=== PATIENT | female | born 1955 | race Caucasian/White ===

== ENCOUNTER 2020-12-04 17:01 | Emergency (ER) | payer OTHER ==
[~2020-12-04] VITALS: Ht 177.8 cm; Wt 102.1 kg
--- NOTE | 2020-12-04 17:25 | NUR ---
65 y/f with no significant past medical hx reported presented with a c/o of upper quadrant abdominal pain 6/10 x 5 hrs. she describe the pain as burning associated with nausea but no vomiting. She denies eating any provocating food or drinks. She denies constipation, diarrhea, chest pain, fever/chills. pt place on playground monitor, all safety precaution in place,
[2020-12-04] MEDS ORDERED: MAG HYDROX/AL HYDROX/SIMETH 30 ML UDC ONE (17:57)
[2020-12-04] MEDS ORDERED: ONDANSETRON HCL/PF 4 MG/2 ML VIAL ONE (17:57)
[2020-12-04] MEDS ORDERED: LIDOCAINE 2% JEL UROJET 10 ML MM ONE (17:57)
[2020-12-04] MEDS ORDERED: MORPHINE SULFATE INJ 2 MG/ML DISP.SYRIN ONE (17:58)
[2020-12-04] MEDS ORDERED: MAG HYDROX/AL HYDROX/SIMETH 30 ML UDC PO ONE (18:00)
[2020-12-04] MEDS ORDERED: ONDANSETRON HCL/PF 4 MG/2 ML VIAL IVP ONE (18:00)
[2020-12-04] MEDS ORDERED: LIDOCAINE VISCOUS 2% UD 15 ML UDC MM ONE (18:00)
[2020-12-04] MEDS ORDERED: MORPHINE SULFATE INJ 2 MG/ML DISP.SYRIN IV ONE (18:00)
[2020-12-04] MEDS ORDERED: LIDOCAINE VISCOUS 2% UD 15 ML UDC ONE (18:12)
[2020-12-04] MEDS: IV NS 0.9% 1,000 ML BAG IV ONE ×2 (18:13→18:14)
[2020-12-04 18:20] LABS: BASOPHILS % (AUTO) 0.6 % (0.0-2.0); EOSINOPHILS % (AUTO) 0.4 % (0.0-6.0); HEMATOCRIT 42 % (33-45); LYMPHOCYTES # (AUTO) 1.3 /CMM (0.8-4.8); LYMPHOCYTES % (AUTO) 15.3 % (20.0-44.0); MEAN CORPUSCULAR HGB CONC 33 g/dl (31.0-36.0); MEAN CORPUSCULAR VOLUME 92 fL (82-100); MONOCYTES # (AUTO) 0.3 /CMM (0.1-1.30); MONOCYTES % (AUTO) 3.5 % (2.0-12.0); NEUTROPHILS # (AUTO) 6.7 /CMM (1.8-8.9); NEUTROPHILS % (AUTO) 80.2 % (43.0-81.0); PLATELET COUNT (AUTO) 139 /CMM (150-450); RED BLOOD CELL COUNT(AUTO) 4.59 MIL/uL (4.0-5.2); WHITE BLOOD COUNT (AUTO) 8.3 K/uL (4.3-11.0)
[2020-12-04 18:36] LABS: ALANINE AMINOTRANSFERASE 76 U/L (12-78); ALKALINE PHOSPHATASE 116 U/L (46-116); ASPARTATE AMINOTRANSFERASE 105 U/L (15-37); BILIRUBIN,DIRECT 0.1 mg/dL (0.0-0.2); BILIRUBIN,TOTAL 0.7 mg/dL (0.2-1.0); CALCIUM, SERUM 9.2 mg/dL (8.5-10.1); CARBON DIOXIDE 30 mmol/L (21-32); CHLORIDE 103 mmol/L (98-107); CREATININE 0.8 mg/dL (0.6-1.3); GLUCOSE 111 mg/dL (74-106); LIPASE 509 U/L (73-393); POTASSIUM 4.7 mmol/L (3.5-5.1); SODIUM SERUM 139 mmol/L (136-145); TOTAL PROTEIN, SERUM 7.6 g/dL (6.4-8.2); UREA NITROGEN, BLOOD 16 mg/dL (7-18)
--- NOTE | 2020-12-04 19:05 | NUR ---
rec'd report for Tuesday, Rn For amy
[2020-12-04] MEDS ORDERED: diphenhydrAMINE HCL 25 MG CAPSULE ONE (19:25)
[2020-12-04] MEDS ORDERED: diphenhydrAMINE HCL 50 MG/ML VIAL IV ONE (19:30)
[2020-12-04] MEDS ORDERED: ACET-2605 PO (19:51)
[2020-12-04] MEDS ORDERED: TRAM50TA2 PO (19:51)
--- NOTE | 2020-12-04 20:01 | NUR ---
Patient discharged to home in stable condition. Written and verbal after care instructions given. Patient verbalizes understanding of instruction.IV removed. Catheter intact and site benign. Pressure and 4x4 applied to site. No bleeding noted. Pt ambulatory with a steady gait
[2020-12-04 20:05] VITALS: BP 164/70
== END 2020-12-04 20:01 | disposition home or self-care (01) ==
LOC: ER 17:02
DX: R10.13 Epigastric pain (principal); I10 Essential (primary) hypertension; E78.00 Pure hypercholesterolemia, unspecified; K21.9 Gastro-esophageal reflux disease without esophagitis; Z79.899 Other long term (current) drug therapy
CPT/HCPCS: 36415; 71045; 76705; 80048; 80076; 83690; 84484; 85025; 93005; 96361; 96374; 96375; 99285; J2270; J2405; J3490; J7030; Q0163

== ENCOUNTER 2023-05-08 18:21 | Emergency (ER) | payer OTHER ==
[~2023-05-08] VITALS: Ht 177.8 cm; Wt 90.7 kg
[~2023-05-08 18:21] MED LIST: ACET-2605 PO; TRAM50TA2 PO
[2023-05-08 18:32] VITALS: TEMP 97.9
[2023-05-08 21:06] VITALS: BP 136/65; O2SAT 96
== END 2023-05-08 21:13 | disposition home or self-care (01) ==
LOC: ER 18:25
DX: J02.9 Acute pharyngitis, unspecified (principal); R05.9 Cough, unspecified; I10 Essential (primary) hypertension; K21.9 Gastro-esophageal reflux disease without esophagitis; Z79.899 Other long term (current) drug therapy; Z20.822 Contact with and (suspected) exposure to COVID-19
CPT/HCPCS: 99284; 71045; 87426; C9803